=== PATIENT | male | born 1960 | race Caucasian/White ===

== ENCOUNTER 2017-09-29 21:53 | Emergency (ER) | payer MEDICARE, MEDICAID ==
[~2017-09-29] VITALS: Ht 177.8 cm; Wt 99.6 kg
[~2017-09-29 21:53] MED LIST: ACET-2902 PO; BISA10SU61 RC; CLON0.1T PO; CLON1 PO; ERGO400C PO; EZET10 PO; FE PR; IBUP-2076 PO; LOPE2CAP PO; LORA2TAB2 PO; MAGN250T9 PO; MULT1CAP42 PO; OMEP20CA10 PO; PSYL0.529 PO; QUET100T PO; SIME125C PO; SIMV20TA6 PO; TOPI200T PO; TRAM50TA4 PO; VICOT PO; [UNRECOGNIZED DRUG - CODE] PO
[2017-09-29] MEDS ORDERED: FENO48TA15 PO (22:15)
[2017-09-29] MEDS ORDERED: MELA3TAB66 PO (22:15)
[2017-09-29] MEDS ORDERED: ARIP2 PO (22:15)
[2017-09-29] MEDS ORDERED: OMEG10005 PO (22:15)
[2017-09-29] MEDS ORDERED: DSS100 PO (22:15)
[2017-09-29 22:20] LABS: BASOPHILS % (AUTO) 0.4 % (0.0-2.0); EOSINOPHILS % (AUTO) 1.3 % (1.0-6.0); HEMATOCRIT 39.5 % (41-53); LYMPHOCYTES # (AUTO) 1.7 K/uL (1.0-4.8); LYMPHOCYTES % (AUTO) 25.6 % (22.0-44.0); MEAN CORPUSCULAR HEMOGLOBIN 28.9 pg (26.0-34.0); MEAN CORPUSCULAR HGB CONC 35.4 G/dL (31.0-37.0); MEAN CORPUSCULAR VOLUME 82 fL (80-100); MONOCYTES # (AUTO) 0.4 K/uL (0.1-1.0); MONOCYTES % (AUTO) 6.6 % (2.0-9.0); NEUTROPHILS # (AUTO) 4.5 K/uL (1.8-7.7); NEUTROPHILS % (AUTO) 66.1 % (40.0-70.0); PLATELET COUNT (AUTO) 269 K/uL (150-450); RED BLOOD CELL COUNT(AUTO) 4.84 MIL/uL (4.50-5.90); RED CELL DISTRIBUTION WIDTH 13.1 % (11.5-14.5)
[2017-09-29 22:35] LABS: CALCIUM, TOTAL 8.7 mg/dL (8.8-10.5); CREATININE 1.71 mg/dL (0.60-1.30); POTASSIUM 3.2 mmol/L (3.5-5.1)
[2017-09-29 22:40] LABS: BILIRUBIN,TOTAL 0.3 mg/dL (0.1-1.0); TOTAL PROTEIN, SERUM 7.6 g/dL (6.4-8.2)
[2017-09-29 22:45] LABS: ALBUMIN 3.9 g/dL (3.4-5.0)
[2017-09-29 23:45] VITALS: BP 146/81
== END 2017-09-30 01:13 | disposition home or self-care (01) ==
LOC: EMS 21:54
DX: N18.9 Chronic kidney disease, unspecified (principal); Z88.5 Allergy status to narcotic agent; Z88.8 Allergy status to other drugs, medicaments and biological substances
CPT/HCPCS: 99284

== ENCOUNTER 2020-03-29 01:22 | Emergency (ER) | payer MEDICARE, OTHER, MEDICAID ==
[~2020-03-29] VITALS: Ht 177.8 cm; Wt 77.3 kg
[~2020-03-29 01:22] MED LIST changes: -ACET-2902 PO; +ARIP2 PO; -BISA10SU61 RC; +CLON-595 PO; -CLON1 PO; +DSS100 PO; -ERGO400C PO; -EZET10 PO; -FE PR; +FENO48TA20 PO; -IBUP-2076 PO; -LOPE2CAP PO; -LORA2TAB2 PO; -MAGN250T9 PO; +MELA3TAB89 PO; -MULT1CAP42 PO; +OMEG10005 PO; -OMEP20CA10 PO; -PSYL0.529 PO; -SIME125C PO; +SIMV-43 PO; -SIMV20TA6 PO; -TRAM50TA4 PO; -VICOT PO; -[UNRECOGNIZED DRUG - CODE] PO
[2020-03-29 02:43] LABS: GLUCOSE,POINT OF CARE 58 MG/DL (70-110)
[2020-03-29 03:09] LABS: GLUCOSE,POINT OF CARE 79 MG/DL (70-110)
[2020-03-29 03:13] LABS: ANION GAP 10 mmol/L (8-16); BASOPHILS % (AUTO) 0.4 % (0.0-2.0); CALCIUM, TOTAL 8.6 mg/dL (8.8-10.5); CARBON DIOXIDE 22 mmol/L (22-29); CHLORIDE 110 mmol/L (98-107); CREATININE 1.21 mg/dL (0.60-1.30); GLOMERULAR FILTR. RATE CALC > 60 mL/min (>60); GLUCOSE,RANDOM 91 mg/dL (70-110); HEMATOCRIT 43.2 % (41-53); HEMOGLOBIN 14.6 g/dL (13.5-17.5); LYMPHOCYTES # (AUTO) 2.3 K/uL (1.0-4.8); MEAN CORPUSCULAR HGB CONC 33.9 G/dL (31.0-37.0); MEAN CORPUSCULAR VOLUME 86 fL (80-100); MONOCYTES # (AUTO) 0.4 K/uL (0.1-1.0); MONOCYTES % (AUTO) 6.1 % (2.0-9.0); NEUTROPHILS # (AUTO) 3.1 K/uL (1.8-7.7); NEUTROPHILS % (AUTO) 52.5 % (40.0-70.0); PLATELET COUNT (AUTO) 219 K/uL (150-450); POTASSIUM 3.4 mmol/L (3.5-5.1); RED BLOOD CELL COUNT(AUTO) 5.05 MIL/uL (4.50-5.90); RED CELL DISTRIBUTION WIDTH 13.2 % (11.5-14.5); SODIUM SERUM 142 mmol/L (136-145); UREA NITROGEN, BLOOD 16 mg/dL (7-18)
[2020-03-29 03:20] LABS: ALANINE AMINOTRANSFERASE 31 U/L (12-78); ALBUMIN 3.7 g/dL (3.4-5.0); ALKALINE PHOSPHATASE 80 U/L (46-116); ASPARTATE AMINOTRANSFERASE 16 U/L (15-37); BILIRUBIN,TOTAL 0.3 mg/dL (0.1-1.0); TOTAL PROTEIN, SERUM 7.2 g/dL (6.4-8.2)
[2020-03-29 04:02] VITALS: BP 129/67
[2020-03-29 04:13] LABS: GLUCOSE,POINT OF CARE 104 MG/DL (70-110)
== END 2020-03-29 05:10 | disposition home or self-care (01) ==
LOC: EMS 01:23
DX: F84.0 Autistic disorder (principal); E16.2 Hypoglycemia, unspecified; R53.83 Other fatigue; F41.9 Anxiety disorder, unspecified; Z88.8 Allergy status to other drugs, medicaments and biological substances; Z88.5 Allergy status to narcotic agent
CPT/HCPCS: 36415; 80053; 82962; 84484; 85025; 93005; 99284; G0480

== ENCOUNTER 2023-10-03 12:09 | Emergency (ER) | payer MEDICARE, OTHER ==
[~2023-10-03] VITALS: Ht 177.8 cm; Wt 81.8 kg
[~2023-10-03 12:09] MED LIST changes: -ARIP2 PO; +ARIP2TAB27 PO; +FENO48TA12 PO; -FENO48TA20 PO
[2023-10-03 13:02] VITALS: TEMP 98
[2023-10-03 13:04] LABS: COVID AG,FIA SOURCE NASAL SWAB
[2023-10-03 13:22] LABS: ANION GAP 10 mmol/L (8-16); CALCIUM, TOTAL 8.9 mg/dL (8.8-10.5); CARBON DIOXIDE 24 mmol/L (22-29); CHLORIDE 109 mmol/L (98-107); CREATININE 1.19 mg/dL (0.60-1.30); GLOMERULAR FILTR. RATE CALC > 60 mL/min (>60); GLUCOSE,RANDOM 116 mg/dL (70-110); POTASSIUM 3.2 mmol/L (3.5-5.1); SODIUM SERUM 143 mmol/L (136-145); UREA NITROGEN, BLOOD 25 mg/dL (7-18)
[2023-10-03 13:28] LABS: ALANINE AMINOTRANSFERASE 26 U/L (12-78); ALBUMIN 3.5 g/dL (3.4-5.0); ALKALINE PHOSPHATASE 92 U/L (46-116); ASPARTATE AMINOTRANSFERASE 17 U/L (15-37); BILIRUBIN,TOTAL 0.3 mg/dL (0.1-1.0); TOTAL PROTEIN, SERUM 7.5 g/dL (6.4-8.2)
[2023-10-03 13:32] LABS: ALCOHOL, BLOOD (SERUM) < 3 mg/dL (0-10)
[2023-10-03 13:37] LABS: SARS-COV2 (COVID) ANTIGEN,FIA Negative (Negative)
[2023-10-03 13:38] LABS: BASOPHILS % (AUTO) 0.5 % (0.0-2.0); HEMOGLOBIN 13.9 g/dL (13.5-17.5); LYMPHOCYTES # (AUTO) 1.1 K/uL (1.0-4.8); LYMPHOCYTES % (AUTO) 18.9 % (22.0-44.0); MEAN CORPUSCULAR HEMOGLOBIN 29.9 pg (26.0-34.0); MEAN CORPUSCULAR HGB CONC 33.9 G/dL (31.0-37.0); MEAN CORPUSCULAR VOLUME 88 fL (80-100); MONOCYTES # (AUTO) 0.5 K/uL (0.1-1.0); MONOCYTES % (AUTO) 7.6 % (2.0-9.0); NEUTROPHILS # (AUTO) 4.2 K/uL (1.8-7.7); PLATELET COUNT (AUTO) 184 K/uL (150-450); RED BLOOD CELL COUNT(AUTO) 4.65 MIL/uL (4.50-5.90); RED CELL DISTRIBUTION WIDTH 13.9 % (11.5-14.5); WHITE BLOOD COUNT (AUTO) 6.1 K/uL (4.5-11.0)
[2023-10-03 16:30] VITALS: BP 120/75; PULSE 70; RESP 16
== END 2023-10-03 16:53 | disposition home or self-care (01) ==
LOC: EMS 12:09
DX: S90.31XA Contusion of right foot, initial encounter (principal); F84.0 Autistic disorder; F29 Unspecified psychosis not due to a substance or known physiological condition; Z88.1 Allergy status to other antibiotic agents; Z88.5 Allergy status to narcotic agent; Z88.6 Allergy status to analgesic agent; Z88.8 Allergy status to other drugs, medicaments and biological substances; Z20.822 Contact with and (suspected) exposure to COVID-19; Z79.899 Other long term (current) drug therapy; X58.XXXA Exposure to other specified factors, initial encounter; Y93.89 Activity, other specified; Y92.89 Other specified places as the place of occurrence of the external cause; Y99.8 Other external cause status
CPT/HCPCS: 99285; 87426; 80053; 80178; 85025; 36415; 73610; 73630; G0480

== ENCOUNTER 2023-11-28 15:28 | Inpatient (IN) | payer MEDICARE, OTHER ==
[~2023-11-28] VITALS: Ht 177.8 cm; Wt 90.9 kg
[2023-11-28] MEDS ORDERED: ATOR40TA71 PO (17:18)
[2023-11-28] MEDS ORDERED: FLUV100T22 PO (17:18)
[2023-11-28] MEDS ORDERED: QUET150T20 PO (17:18)
[2023-11-28 17:24] LABS: BASOPHILS % (AUTO) 0.3 % (0.0-2.0); EOSINOPHILS % (AUTO) 2.1 % (1.0-6.0); HEMATOCRIT 45.7 % (41-53); HEMOGLOBIN 15.7 g/dL (13.5-17.5); LYMPHOCYTES # (AUTO) 1.2 K/uL (1.0-4.8); LYMPHOCYTES % (AUTO) 25.1 % (22.0-44.0); MEAN CORPUSCULAR HEMOGLOBIN 29.7 pg (26.0-34.0); MEAN CORPUSCULAR HGB CONC 34.4 G/dL (31.0-37.0); MEAN CORPUSCULAR VOLUME 86 fL (80-100); MONOCYTES # (AUTO) 0.3 K/uL (0.1-1.0); MONOCYTES % (AUTO) 7.4 % (2.0-9.0); NEUTROPHILS % (AUTO) 65.1 % (40.0-70.0); PLATELET COUNT (AUTO) 192 K/uL (150-450); RED CELL DISTRIBUTION WIDTH 13.6 % (11.5-14.5); WHITE BLOOD COUNT (AUTO) 4.7 K/uL (4.5-11.0)
[2023-11-28 17:29] LABS: ANION GAP 7 mmol/L (8-16); CALCIUM, TOTAL 8.7 mg/dL (8.8-10.5); CARBON DIOXIDE 25 mmol/L (22-29); CHLORIDE 107 mmol/L (98-107); CREATININE 1.14 mg/dL (0.60-1.30); GLOMERULAR FILTR. RATE CALC > 60 mL/min (>60); GLUCOSE,RANDOM 97 mg/dL (70-110); POTASSIUM 3.4 mmol/L (3.5-5.1); SODIUM SERUM 139 mmol/L (136-145); UREA NITROGEN, BLOOD 17 mg/dL (7-18)
[2023-11-28 17:32] LABS: ALCOHOL, BLOOD (SERUM) < 3 mg/dL (0-10)
[2023-11-28 17:35] LABS: ALANINE AMINOTRANSFERASE 63 U/L (12-78); ALBUMIN 3.7 g/dL (3.4-5.0); ALKALINE PHOSPHATASE 88 U/L (46-116); ASPARTATE AMINOTRANSFERASE 38 U/L (15-37); BILIRUBIN,TOTAL 0.4 mg/dL (0.1-1.0); TOTAL PROTEIN, SERUM 7.7 g/dL (6.4-8.2)
[2023-11-28 17:37] LABS: TROPONIN I-HIGH SENSITIVITY 7 ng/L (<76)
[2023-11-28 17:47] LABS: COVID AG,FIA SOURCE NASAL SWAB
[2023-11-28 18:09] LABS: SARS-COV2 (COVID) ANTIGEN,FIA Negative (Negative)
[2023-11-28] MEDS: SODIUM CHLORIDE 0.9% 1,000 ML IV ONE (19:51)
[2023-11-28 20:52] LABS: INFLUENZA TYPE A NEGATIVE FOR TYPE A (NEGATIVE); INFLUENZA TYPE B NEGATIVE FOR TYPE B (NEGATIVE)
[2023-11-28] MEDS ORDERED: ONDANSETRON HCL 4 MG/2 ML VIAL IVP PRN (22:00)
[2023-11-28] MEDS ORDERED: CloNIDine HCL 0.1 MG TABLET PO SCH (22:00)
[2023-11-28] MEDS ORDERED: ACETAMINOPHEN 325 MG TABLET PO PRN (22:00)
[2023-11-28] MEDS ORDERED: 0.9% SODIUM CHLORIDE 10 ML SYRINGE IVP PRN (22:00)
[2023-11-28] MEDS: CefTRIAXone 1 GM/DEXTROSE 50 ML IV SCH (22:19)
[2023-11-28] MEDS: LORazepam 2 MG/ML VIAL IVP ONE (22:19)
[2023-11-28] MEDS: SODIUM CHLORIDE 0.9% 2,750 ML IV ONE (22:21)
[2023-11-28] MEDS ORDERED: 0.9% SODIUM CHLORIDE 10 ML SYRINGE IVP ONE (22:24)
[2023-11-28] MEDS ORDERED: SODIUM CHLORIDE 0.9% 100 ML ONE (22:24)
[2023-11-28] MEDS ORDERED: IOHEXOL 350 MG/ML 100 ML VIAL ONE (22:24)
[2023-11-28 22:33] LABS: APPEARANCE,URINE HAZY (CLEAR); BILIRUBIN,URINE NEGATIVE (NEGATIVE); COLOR,URINE LIGHT YELLOW (YELLOW); GLUCOSE, URINE (UA) NEGATIVE (NEGATIVE); KETONES,URINE NEGATIVE (NEGATIVE); LEUKOCYTE ESTERASE ,URINE NEGATIVE (NEGATIVE); NITRATE,URINE NEGATIVE (NEGATIVE); OCCULT BLOOD,URINE NEGATIVE (NEGATIVE); PH,URINE 7.5 (5.0-8.0); PH,URINE DRUG SCREEN 7.5 (5.0-8.0); PROTEIN,URINE NEGATIVE (NEGATIVE); UROBILINOGEN,URINE <=1.0 mg/dL (<=1.0)
[2023-11-28 22:40] LABS: ALCOHOL, URINE DRUG SCREEN NEGATIVE (NEGATIVE); AMPHET/METH SCREEN,URINE NEGATIVE (NEGATIVE); BARBITURATE SCREEN, URINE NEGATIVE (NEGATIVE); BENZODIAZEPINES SCREEN,URINE NEGATIVE (NEGATIVE); CANNABINOID SCREEN,URINE NEGATIVE (NEGATIVE); COCAINE SCREEN,URINE NEGATIVE (NEGATIVE); METHADONE SCREEN, URINE NEGATIVE (NEGATIVE); OPIATE SCREEN,URINE NEGATIVE (NEGATIVE); PHENCYCLIDINE SCREEN,URINE NEGATIVE (NEGATIVE)
[2023-11-28] MEDS: SODIUM CHLORIDE 0.9% 1,700 ML IV ONE (22:46)
[2023-11-28 23:20] LABS: BASOPHILS % (AUTO) 0.6 % (0.0-2.0); EOSINOPHILS % (AUTO) 1.5 % (1.0-6.0); HEMATOCRIT 45.5 % (41-53); HEMOGLOBIN 15.3 g/dL (13.5-17.5); LYMPHOCYTES # (AUTO) 1.3 K/uL (1.0-4.8); LYMPHOCYTES % (AUTO) 25.5 % (22.0-44.0); MEAN CORPUSCULAR HEMOGLOBIN 29.3 pg (26.0-34.0); MEAN CORPUSCULAR HGB CONC 33.6 G/dL (31.0-37.0); MEAN CORPUSCULAR VOLUME 87 fL (80-100); MONOCYTES # (AUTO) 0.4 K/uL (0.1-1.0); MONOCYTES % (AUTO) 7.4 % (2.0-9.0); NEUTROPHILS # (AUTO) 3.3 K/uL (1.8-7.7); PLATELET COUNT (AUTO) 180 K/uL (150-450); RED BLOOD CELL COUNT(AUTO) 5.23 MIL/uL (4.50-5.90); RED CELL DISTRIBUTION WIDTH 13.8 % (11.5-14.5)
[2023-11-28 23:37] LABS: LACTIC ACID 0.9 mmol/L (0.4-2.0)
[2023-11-28 23:40] LABS: ANION GAP 8 mmol/L (8-16); CALCIUM, TOTAL 8.3 mg/dL (8.8-10.5); CARBON DIOXIDE 23 mmol/L (22-29); CHLORIDE 107 mmol/L (98-107); CREATININE 1.04 mg/dL (0.60-1.30); GLOMERULAR FILTR. RATE CALC > 60 mL/min (>60); GLUCOSE,RANDOM 88 mg/dL (70-110); POTASSIUM 3.3 mmol/L (3.5-5.1); SODIUM SERUM 138 mmol/L (136-145); UREA NITROGEN, BLOOD 16 mg/dL (7-18)
[2023-11-28 23:43] LABS: ALANINE AMINOTRANSFERASE 58 U/L (12-78); ALBUMIN 3.4 g/dL (3.4-5.0); ALKALINE PHOSPHATASE 88 U/L (46-116); ASPARTATE AMINOTRANSFERASE 34 U/L (15-37); BILIRUBIN,TOTAL 0.4 mg/dL (0.1-1.0); LACTATE DEHYDROGENASE 145 U/L (85-227); TOTAL PROTEIN, SERUM 7.1 g/dL (6.4-8.2)
[2023-11-29] MEDS: HEPARIN SODIUM,PORCINE 5,000 UNITS/ML VIAL SQ SCH
[2023-11-29 00:27] VITALS: BP 129/74; PULSE 63; RESP 18; TEMP 98.8
[2023-11-29] MEDS: POTASSIUM CHL 10 MEQ/WATER 50 ML IV PRN (01:26)
[2023-11-29 05:30] VITALS: BP 142/78; PULSE 61; RESP 18
[2023-11-29 08:19] VITALS: BP 137/79; PULSE 61; RESP 18; TEMP 98.9
[2023-11-29 08:20] VITALS: BP 137/79; PULSE 61; RESP 18; TEMP 98.9
[2023-11-29 08:40] LABS: BASOPHILS % (AUTO) 0.4 % (0.0-2.0); EOSINOPHILS % (AUTO) 1.8 % (1.0-6.0); LYMPHOCYTES % (AUTO) 16.9 % (22.0-44.0); MEAN CORPUSCULAR HEMOGLOBIN 29.7 pg (26.0-34.0); MEAN CORPUSCULAR HGB CONC 34.2 G/dL (31.0-37.0); MEAN CORPUSCULAR VOLUME 87 fL (80-100); MONOCYTES # (AUTO) 0.4 K/uL (0.1-1.0); MONOCYTES % (AUTO) 5.9 % (2.0-9.0); NEUTROPHILS # (AUTO) 4.6 K/uL (1.8-7.7); PLATELET COUNT (AUTO) 170 K/uL (150-450); RED BLOOD CELL COUNT(AUTO) 5.07 MIL/uL (4.50-5.90); RED CELL DISTRIBUTION WIDTH 13.7 % (11.5-14.5); WHITE BLOOD COUNT (AUTO) 6.2 K/uL (4.5-11.0)
[2023-11-29] MEDS: TOPIRAMATE 100 MG TABLET PO SCH (08:41)
[2023-11-29] MEDS: ARIPiprazole 2 MG TABLET PO SCH (08:41)
[2023-11-29] MEDS: FENOFIBRATE 54 MG TABLET PO SCH (08:41)
[2023-11-29] MEDS: DOCUSATE SODIUM 100 MG CAPSULE PO SCH (08:41)
[2023-11-29] MEDS: OMEGA-3/DHA/EPA/FISH OIL 1,000 MG CAPSULE PO SCH (08:41)
[2023-11-29] MEDS: FluvoxaMINE MALEATE 50 MG TABLET PO SCH (08:41)
[2023-11-29] MEDS: ATORVASTATIN CALCIUM 40 MG TABLET PO SCH (08:41)
[2023-11-29] MEDS: ClonazePAM 1 MG TABLET PO SCH (08:41)
[2023-11-29] MEDS ORDERED: QUEtiapine FUMARATE 300 MG TABLET PO SCH (09:00)
[2023-11-29] MEDS ORDERED: SIMVASTATIN 20 MG TABLET PO SCH (09:00)
[2023-11-29] MEDS: QUEtiapine FUMARATE 100 MG TABLET PO SCH (09:00)
[2023-11-29] MEDS ORDERED: TAMS0.4C94 PO (11:54)
[2023-11-29] MEDS ORDERED: MIRA50TA PO (11:54)
[2023-11-29] MEDS ORDERED: BRIM5DRO28 OU (11:54)
[2023-11-29] MEDS ORDERED: BIMA2.5D4 OU (11:54)
[2023-11-29] MEDS ORDERED: FENO54TA7 PO (11:54)
[2023-11-29] MEDS ORDERED: DOCU-385 PO (11:54)
[2023-11-29] MEDS: LORazepam 2 MG/ML VIAL IVP ONE ×2 (13:56→15:24)
[2023-11-29] MEDS ORDERED: GADOTERATE MEGLUMINE 10 MMOL/20 ML VIAL IVP ONE (15:35)
[2023-11-29 16:35] VITALS: BP 141/87; PULSE 79; RESP 18; TEMP 99.3
[2023-11-29 19:36] VITALS: BP 126/74; PULSE 63; RESP 18; TEMP 98.6
[2023-11-29] MEDS ORDERED: SODIUM CHLORIDE 0.9% 1,000 ML ONE (21:39)
[2023-11-30 04:45] VITALS: BP 128/67; PULSE 59; RESP 18; TEMP 98.2
[2023-11-30 08:00] VITALS: BP 139/74; PULSE 56; RESP 18; TEMP 98.3
[2023-11-30] MEDS: SODIUM CHLORIDE 0.9% 1,000 ML IV SCH (10:47)
[2023-11-30 13:01] LABS: BASOPHILS % (AUTO) 0.4 % (0.0-2.0); EOSINOPHILS % (AUTO) 4.5 % (1.0-6.0); HEMOGLOBIN 15.5 g/dL (13.5-17.5); LYMPHOCYTES # (AUTO) 1.3 K/uL (1.0-4.8); LYMPHOCYTES % (AUTO) 28.6 % (22.0-44.0); MEAN CORPUSCULAR HEMOGLOBIN 29.5 pg (26.0-34.0); MEAN CORPUSCULAR HGB CONC 33.6 G/dL (31.0-37.0); MEAN CORPUSCULAR VOLUME 88 fL (80-100); MONOCYTES # (AUTO) 0.3 K/uL (0.1-1.0); MONOCYTES % (AUTO) 5.9 % (2.0-9.0); NEUTROPHILS # (AUTO) 2.7 K/uL (1.8-7.7); NEUTROPHILS % (AUTO) 60.6 % (40.0-70.0); PLATELET COUNT (AUTO) 150 K/uL (150-450); RED BLOOD CELL COUNT(AUTO) 5.26 MIL/uL (4.50-5.90); RED CELL DISTRIBUTION WIDTH 14.1 % (11.5-14.5); WHITE BLOOD COUNT (AUTO) 4.5 K/uL (4.5-11.0)
[2023-11-30 13:10] LABS: ANION GAP 12 mmol/L (8-16); CALCIUM, TOTAL 8.6 mg/dL (8.8-10.5); CARBON DIOXIDE 22 mmol/L (22-29); CHLORIDE 108 mmol/L (98-107); CREATININE 1.02 mg/dL (0.60-1.30); GLOMERULAR FILTR. RATE CALC > 60 mL/min (>60); GLUCOSE,RANDOM 126 mg/dL (70-110); POTASSIUM 3.3 mmol/L (3.5-5.1); SODIUM SERUM 142 mmol/L (136-145); UREA NITROGEN, BLOOD 7 mg/dL (7-18)
[2023-11-30] MEDS: POTASSIUM CHLORIDE 20 MEQ ER TABLET PO PRN (14:08)
[2023-11-30 14:53] VITALS: BP 133/93; PULSE 79; RESP 18; TEMP 98.7
[2023-11-30 19:27] VITALS: BP 133/87; PULSE 64; RESP 18; TEMP 98.1
[2023-11-30] MEDS: BRIMONIDINE/TIMOLOL 0.2-0.5% 5 ML OPHTHALMIC SOLUTION OU SCH (20:31)
[2023-12-01 06:39] VITALS: BP 126/69; PULSE 59; RESP 18; TEMP 97.9
[2023-12-01] MEDS: BIMATOPROST 0.01% 2.5 ML OPHTHALMIC SOLUTION OU SCH (08:45)
[2023-12-01 09:10] VITALS: BP 147/82; PULSE 80; RESP 20; TEMP 97.9
[2023-12-01 16:27] VITALS: BP 112/70; PULSE 64; RESP 19; TEMP 97.9
[2023-12-01] MEDS: ACETAMINOPHEN 500 MG TABLET PO SCH (16:57)
[2023-12-01 19:15] VITALS: BP 135/77; PULSE 64; RESP 18; TEMP 98.1
[2023-12-02 06:39] VITALS: BP 128/73; PULSE 60; RESP 18; TEMP 97.9
[2023-12-02 08:01] VITALS: BP 105/91; PULSE 60; RESP 18; TEMP 98.4
[2023-12-02 08:53] LABS: ANION GAP 10 mmol/L (8-16); CALCIUM, TOTAL 8.5 mg/dL (8.8-10.5); CARBON DIOXIDE 24 mmol/L (22-29); CHLORIDE 108 mmol/L (98-107); CREATININE 0.96 mg/dL (0.60-1.30); GLOMERULAR FILTR. RATE CALC > 60 mL/min (>60); GLUCOSE,RANDOM 93 mg/dL (70-110); POTASSIUM 3.5 mmol/L (3.5-5.1); SODIUM SERUM 142 mmol/L (136-145); UREA NITROGEN, BLOOD 11 mg/dL (7-18)
[2023-12-02 09:07] LABS: ALANINE AMINOTRANSFERASE 30 U/L (12-78); ALKALINE PHOSPHATASE 87 U/L (46-116); ASPARTATE AMINOTRANSFERASE 18 U/L (15-37); BILIRUBIN,TOTAL 0.3 mg/dL (0.1-1.0); THYROID STIMULATING HORMONE 2.41 uIU/mL (0.36-3.74); TOTAL PROTEIN, SERUM 6.8 g/dL (6.4-8.2)
[2023-12-02] MEDS: LACTULOSE 20 GM/30 ML SOLUTION UDCUP PO SCH (15:07)
[2023-12-02] MEDS: PEG 400/HYPROMELLOSE/GLYCERIN 15 ML OPHTHALMIC SOLUTION OU SCH (15:07)
[2023-12-02 15:50] VITALS: BP 144/67; PULSE 60; RESP 18; TEMP 96.4
[2023-12-02] MEDS ORDERED: SODIUM CHLORIDE 0.9% 500 ML IV ONE (16:15)
[2023-12-02 19:50] VITALS: BP 130/80; PULSE 62; RESP 18; TEMP 97.5
[2023-12-02] MEDS: TAMSULOSIN HCL 0.4 MG CAPSULE PO SCH (20:03)
[2023-12-02] MEDS: TOPIRAMATE 100 MG TABLET PO SCH (20:03)
[2023-12-03 06:18] VITALS: BP 116/77; PULSE 53; RESP 18; TEMP 97.5
[2023-12-03] MEDS: CALCIUM CARBONATE 500 MG CHEWABLE TABLET CHEW SCH (08:42)
[2023-12-03 09:35] VITALS: BP 160/86; PULSE 57; RESP 18; TEMP 97.6
[2023-12-03 16:44] VITALS: BP 149/78; PULSE 71; RESP 18; TEMP 98
[2023-12-03 19:45] VITALS: BP 135/89; PULSE 64; RESP 20; TEMP 98.5
[2023-12-03] MEDS: NAPROXEN 250 MG TABLET PO SCH (20:30)
[2023-12-04 05:43] VITALS: BP 115/89; PULSE 74; RESP 18; TEMP 97.8
[2023-12-04 09:20] VITALS: BP 120/76; PULSE 98; RESP 18; TEMP 98.5
[2023-12-04] MEDS: NAPROXEN 250 MG TABLET PO SCH (10:22)
== END 2023-12-04 16:15 | disposition home health service (06) | DRG 92 ==
LOC: EMS 15:28 → EDH 21:56 → 4E 11-29 00:05
PROVIDERS: ADMIT Internal Medicine; ATTEND Internal Medicine
DX: G92.8 Other toxic encephalopathy (principal); F84.0 Autistic disorder; M48.54XA Collapsed vertebra, not elsewhere classified, thoracic region, initial encounter for fracture; G40.909 Epilepsy, unspecified, not intractable, without status epilepticus; F42.9 Obsessive-compulsive disorder, unspecified; Z20.822 Contact with and (suspected) exposure to COVID-19; R62.7 Adult failure to thrive; F39 Unspecified mood [affective] disorder; E78.5 Hyperlipidemia, unspecified; F41.9 Anxiety disorder, unspecified; N31.8 Other neuromuscular dysfunction of bladder; Z87.11 Personal history of peptic ulcer disease; T50.915A Adverse effect of multiple unspecified drugs, medicaments and biological substances, initial encounter; Z74.01 Bed confinement status; N31.9 Neuromuscular dysfunction of bladder, unspecified; Z79.899 Other long term (current) drug therapy; Z88.8 Allergy status to other drugs, medicaments and biological substances; Z98.41 Cataract extraction status, right eye; Z88.5 Allergy status to narcotic agent; Z98.42 Cataract extraction status, left eye; Z87.01 Personal history of pneumonia (recurrent); Z86.61 Personal history of infections of the central nervous system; Z68.28 Body mass index [BMI] 28.0-28.9, adult
CPT/HCPCS: 70450; 70551; 71045; 72148; 74177; 80048; 80053; 80307; 81003; 82140; 83605; 83615; 83735; 84132; 84145; 84443; 84484; 85025; 85730; 86592; 87040; 87804; 93005; 95816; 97167; 97535; 99285; G0378; G0480; J0696; J1644; J2060; J3480; J7030; J7040; J7050; 36415-L1; 36415-TC

== ENCOUNTER 2024-05-07 07:30 | Inpatient (IN) | payer MEDICARE, MEDICAID, OTHER ==
[~2024-05-07] VITALS: Ht 185.4 cm; Wt 85.1 kg
[~2024-05-07 07:30] MED LIST changes: +ATOR40TA71 PO; +BIMA2.5D4 OU; +BRIM5DRO28 OU; -CLON0.1T PO; +DOCU-385 PO; -DSS100 PO; -FENO48TA12 PO; +FENO54TA7 PO; +MIRA50TA PO; +OMEG100014 PO; -OMEG10005 PO; -QUET100T PO; -SIMV-43 PO; +TAMS0.4C94 PO; +[UNRECOGNIZED DRUG - CODE] PO
[2024-05-07 08:48] LABS: COVID AG,FIA SOURCE NPH
[2024-05-07 08:51] LABS: PLATELET COUNT (AUTO) 202 K/uL (150-450); RED BLOOD CELL COUNT(AUTO) 5.46 MIL/uL (4.50-5.90); RED CELL DISTRIBUTION WIDTH 13.6 % (11.5-14.5); WHITE BLOOD COUNT (AUTO) 5.8 K/uL (4.5-11.0)
[2024-05-07] MEDS ORDERED: ZOLPIDEM TARTRATE 10 MG TABLET PO PRN (09:00)
[2024-05-07] MEDS ORDERED: OLANZapine 5 MG RAPDIS TABLET PO PRN (09:00)
[2024-05-07 09:07] LABS: CALCIUM, TOTAL 9.3 mg/dL (8.8-10.5); CREATININE 1.23 mg/dL (0.60-1.30); GLOMERULAR FILTR. RATE CALC 60 mL/min (>60); GLUCOSE,RANDOM 94 mg/dL (70-110); SODIUM SERUM 139 mmol/L (136-145); UREA NITROGEN, BLOOD 6 mg/dL (7-18)
[2024-05-07 09:54] LABS: SARS-COV2 (COVID) ANTIGEN,FIA Negative (Negative)
[2024-05-07 10:05] LABS: ALCOHOL, BLOOD (SERUM) < 3 mg/dL (0-10)
[2024-05-07] MEDS ORDERED: ACETAMINOPHEN 325 MG TABLET PO PRN (11:30)
[2024-05-07] MEDS ORDERED: MAG HYDROX/ALUMINUM HYD/SIMETH ES 30 ML SUSPENSION UDCUP PO PRN (11:30)
[2024-05-07] MEDS ORDERED: MAGNESIUM HYDROXIDE SUSPENSION 30 ML UDCUP PO PRN (11:30)
[2024-05-07] MEDS ORDERED: LOPERAMIDE HCL 2 MG CAPSULE PO PRN (11:30)
[2024-05-07] MEDS: POTASSIUM CHLORIDE 20 MEQ ER TABLET PO ONE (12:21)
[2024-05-07 15:15] VITALS: O2SAT 96
[2024-05-07 19:49] VITALS: BP 126/82; PULSE 67; RESP 16; TEMP 97.5; O2SAT 67
[2024-05-08] MEDS ORDERED: PETROLATUM,WHITE 28 GM JELLY TP PRN (15:30)
[2024-05-08] MEDS ORDERED: MAGNESIUM HYDROXIDE SUSPENSION 30 ML UDCUP PO PRN (15:30)
[2024-05-08] MEDS ORDERED: DOCUSATE SODIUM 100 MG CAPSULE PO PRN (15:30)
[2024-05-08] MEDS ORDERED: ONDANSETRON 4 MG TABLET PO PRN (15:30)
[2024-05-08] MEDS ORDERED: MAG HYDROX/ALUMINUM HYD/SIMETH ES 30 ML SUSPENSION UDCUP PO PRN (15:30)
[2024-05-08] MEDS ORDERED: ALBUTEROL SULFATE HFA 90 MCG/PUFF 8 GM INHALER IH PRN (15:30)
[2024-05-08] MEDS ORDERED: GuaiFENesin/D-METHORPHAN [SUGAR-FREE] 200-20MG/10 ML SYRUP UDCUP PO PRN (15:30)
[2024-05-08] MEDS ORDERED: NICOTINE 14 MG/24 HOUR PATCH TD PRN (15:30)
[2024-05-08] MEDS ORDERED: ACETAMINOPHEN 325 MG TABLET PO PRN (15:30)
[2024-05-08 17:01] VITALS: BP 110/62; PULSE 73; RESP 18; TEMP 97.8; O2SAT 97
[2024-05-08] MEDS ORDERED: FLUV50 PO (20:16)
[2024-05-08] MEDS ORDERED: LACT10SO10 PO (20:16)
[2024-05-08] MEDS ORDERED: CLON0.5T4 PO (20:16)
[2024-05-08] MEDS ORDERED: QUET100T34 PO (20:16)
[2024-05-08 20:23] VITALS: BP 170/71; PULSE 75; RESP 18; TEMP 96.9; O2SAT 94
[2024-05-09] MEDS: FENOFIBRATE 54 MG TABLET PO SCH (08:50)
[2024-05-09] MEDS: ATORVASTATIN CALCIUM 40 MG TABLET PO SCH (08:50)
[2024-05-09] MEDS: OMEGA-3/DHA/EPA/FISH OIL 1,000 MG CAPSULE PO SCH (08:50)
[2024-05-09] MEDS: TAMSULOSIN HCL 0.4 MG CAPSULE PO SCH (08:51)
[2024-05-09 08:58] LABS: CHOL/HDL RATIO 2.3 (4.2-7.3); LDL CHOL (CALC.) 66.0 mg/dL (0-130)
[2024-05-09 13:50] VITALS: BP 131/69; PULSE 93; RESP 18; TEMP 97.8; O2SAT 97
[2024-05-09 20:00] VITALS: BP 128/73; PULSE 79; RESP 18; TEMP 97.9; O2SAT 97
[2024-05-10 11:00] VITALS: RESP 16
[2024-05-10] MEDS: ZOLPIDEM TARTRATE 10 MG TABLET PO PRN (22:37)
[2024-05-11] MEDS: MELATONIN 3 MG TABLET PO PRN (01:36)
[2024-05-11 10:16] VITALS: BP 125/67; PULSE 62; RESP 17; TEMP 97.7; O2SAT 95
[2024-05-11] MEDS ORDERED: LORazepam 2 MG/ML VIAL ONE (12:37)
[2024-05-11] MEDS: LORazepam 2 MG/ML VIAL IM ONE (13:05)
[2024-05-11] MEDS: TOPIRAMATE 100 MG TABLET PO SCH (16:32)
[2024-05-11] MEDS: LACTULOSE 20 GM/30 ML SOLUTION UDCUP PO SCH (16:33)
[2024-05-11] MEDS: BRIMONIDINE/TIMOLOL 0.2-0.5% 5 ML OPHTHALMIC SOLUTION OU SCH (17:00)
[2024-05-11 20:32] VITALS: BP 127/68; PULSE 99; RESP 16; TEMP 98.5; O2SAT 100
[2024-05-11] MEDS: BIMATOPROST 0.01% 2.5 ML OPHTHALMIC SOLUTION OU SCH (21:13)
[2024-05-12 08:22] VITALS: BP 101/41; PULSE 60; RESP 16; TEMP 97; O2SAT 95
[2024-05-12 09:37] VITALS: BP 112/65
[2024-05-12 20:55] VITALS: BP 138/80; PULSE 71; RESP 18; TEMP 98.3; O2SAT 97
[2024-05-13 20:39] VITALS: BP 118/62; PULSE 62; RESP 18; TEMP 97.3; O2SAT 95
[2024-05-14 08:08] VITALS: BP 122/73; PULSE 60; RESP 16; TEMP 97.8; O2SAT 95
[2024-05-14 21:03] VITALS: BP 103/63; PULSE 73; RESP 18; TEMP 97.4; O2SAT 92
[2024-05-15 08:20] VITALS: PULSE 73; RESP 19; TEMP 97.6; O2SAT 96
[2024-05-15 20:41] VITALS: RESP 18; TEMP 97.8
[2024-05-15] MEDS: HYDROCORTISONE 2.5% 30 GM CREAM TP SCH (21:00)
[2024-05-16 08:31] VITALS: PULSE 84; RESP 17; TEMP 97.1; O2SAT 97
[2024-05-16] MEDS: LORazepam 2 MG/ML VIAL IM ONE (16:06)
[2024-05-17 08:41] VITALS: BP 104/62; PULSE 64; RESP 18; TEMP 97.4; O2SAT 96
[2024-05-17] MEDS: LORazepam 2 MG/ML VIAL IM ONE (17:34)
[2024-05-17 20:14] VITALS: PULSE 71; RESP 18; TEMP 97.6; O2SAT 98
[2024-05-18 08:14] VITALS: BP 106/58; PULSE 63; RESP 19; TEMP 96.4; O2SAT 97
[2024-05-18 20:25] VITALS: RESP 18; TEMP 97.6
[2024-05-19 08:00] LABS: PLATELET COUNT (AUTO) 186 K/uL (150-450); RED BLOOD CELL COUNT(AUTO) 4.63 MIL/uL (4.50-5.90); RED CELL DISTRIBUTION WIDTH 12.8 % (11.5-14.5); WHITE BLOOD COUNT (AUTO) 4.9 K/uL (4.5-11.0)
[2024-05-19 08:15] LABS: CALCIUM, TOTAL 8.4 mg/dL (8.8-10.5); CREATININE 1.01 mg/dL (0.60-1.30); GLOMERULAR FILTR. RATE CALC > 60 mL/min (>60); GLUCOSE,RANDOM 81 mg/dL (70-110); SODIUM SERUM 140 mmol/L (136-145); UREA NITROGEN, BLOOD 16 mg/dL (7-18)
[2024-05-19 08:25] VITALS: BP 120/65; PULSE 71; RESP 18; TEMP 97.9; O2SAT 96
[2024-05-19] MEDS: POTASSIUM CHLORIDE 20 MEQ ER TABLET PO ONE (09:53)
[2024-05-19 20:46] VITALS: BP 130/75; PULSE 86; RESP 17; TEMP 97.7; O2SAT 99
[2024-05-20 08:19] VITALS: BP 100/83; PULSE 64; RESP 17; TEMP 97.6; O2SAT 95
[2024-05-20 09:21] LABS: ASPARTATE AMINOTRANSFERASE 27 U/L (15-37); CALCIUM, TOTAL 8.6 mg/dL (8.8-10.5); CREATININE 0.99 mg/dL (0.60-1.30); GLOMERULAR FILTR. RATE CALC > 60 mL/min (>60); GLUCOSE,RANDOM 89 mg/dL (70-110); SODIUM SERUM 147 mmol/L (136-145); TOTAL PROTEIN, SERUM 6.0 g/dL (6.4-8.2); UREA NITROGEN, BLOOD 16 mg/dL (7-18)
[2024-05-20 09:50] LABS: APPEARANCE,URINE CLEAR (CLEAR); GLUCOSE, URINE (UA) NEGATIVE (NEGATIVE); LEUKOCYTE ESTERASE ,URINE NEGATIVE (NEGATIVE); NITRATE,URINE NEGATIVE (NEGATIVE); OCCULT BLOOD,URINE LARGE (NEGATIVE); PH,URINE DRUG SCREEN 6.0 (5.0-8.0); SPECIFIC GRAVITIY, URINE 1.013 (1.003-1.030)
[2024-05-20 09:57] LABS: ALCOHOL, URINE DRUG SCREEN NEGATIVE (NEGATIVE); AMPHET/METH SCREEN,URINE NEGATIVE (NEGATIVE); BARBITURATE SCREEN, URINE NEGATIVE (NEGATIVE); CANNABINOID SCREEN,URINE NEGATIVE (NEGATIVE); COCAINE SCREEN,URINE NEGATIVE (NEGATIVE); METHADONE SCREEN, URINE NEGATIVE (NEGATIVE)
[2024-05-20 11:13] LABS: CALCIUM OXALATE CRYSTALS,UR Few /LPF (None Seen); SQUAMOUS EPITHELIAL CELL,UR Few /LPF (None Seen)
[2024-05-20 20:17] VITALS: BP 119/84; PULSE 84; RESP 19; TEMP 97.6; O2SAT 96
[2024-05-21 17:03] VITALS: RESP 18
[2024-05-21 20:21] VITALS: RESP 18
[2024-05-22 08:39] VITALS: BP 118/69; PULSE 98; RESP 18; TEMP 98; O2SAT 98
[2024-05-22] MEDS: POTASSIUM CHLORIDE 20 MEQ ER TABLET PO ONE (13:24)
[2024-05-22 21:22] VITALS: BP 138/99; PULSE 71; RESP 17; TEMP 97.2; O2SAT 97
[2024-05-23 08:05] VITALS: RESP 16
[2024-05-23 09:09] LABS: CALCIUM, TOTAL 8.8 mg/dL (8.8-10.5); CREATININE 1.01 mg/dL (0.60-1.30); GLOMERULAR FILTR. RATE CALC > 60 mL/min (>60); GLUCOSE,RANDOM 86 mg/dL (70-110); SODIUM SERUM 149 mmol/L (136-145); UREA NITROGEN, BLOOD 8 mg/dL (7-18)
[2024-05-23 20:00] VITALS: BP 138/86; PULSE 61; RESP 18; TEMP 98.1; O2SAT 97
[2024-05-23] MEDS: POTASSIUM CHLORIDE 10 MEQ ER TABLET PO ONE (20:02)
[2024-05-24 08:06] VITALS: BP 133/61; PULSE 69; RESP 16; TEMP 97.6; O2SAT 96
[2024-05-24 09:04] LABS: CALCIUM, TOTAL 8.6 mg/dL (8.8-10.5); CREATININE 0.98 mg/dL (0.60-1.30); GLOMERULAR FILTR. RATE CALC > 60 mL/min (>60); GLUCOSE,RANDOM 85 mg/dL (70-110); SODIUM SERUM 144 mmol/L (136-145); UREA NITROGEN, BLOOD 11 mg/dL (7-18)
[2024-05-24 20:33] VITALS: BP 141/70; PULSE 95; RESP 18; TEMP 98; O2SAT 98
[2024-05-25 08:18] VITALS: PULSE 89; RESP 17; TEMP 92.2; O2SAT 98
[2024-05-25 08:56] LABS: CALCIUM, TOTAL 8.2 mg/dL (8.8-10.5); CREATININE 0.93 mg/dL (0.60-1.30); GLOMERULAR FILTR. RATE CALC > 60 mL/min (>60); GLUCOSE,RANDOM 86 mg/dL (70-110); SODIUM SERUM 143 mmol/L (136-145); UREA NITROGEN, BLOOD 11 mg/dL (7-18)
[2024-05-25] MEDS: POTASSIUM CHLORIDE 10% 40 MEQ/30 ML LIQUID UDCUP PO ONE (19:40)
[2024-05-25 22:12] VITALS: PULSE 90; RESP 18; TEMP 97.3; O2SAT 99
[2024-05-26 08:38] VITALS: PULSE 78; RESP 18; TEMP 97; O2SAT 98
[2024-05-26 08:55] LABS: CALCIUM, TOTAL 9.3 mg/dL (8.8-10.5); CREATININE 1.02 mg/dL (0.60-1.30); GLOMERULAR FILTR. RATE CALC > 60 mL/min (>60); GLUCOSE,RANDOM 71 mg/dL (70-110); SODIUM SERUM 142 mmol/L (136-145); UREA NITROGEN, BLOOD 12 mg/dL (7-18)
[2024-05-26 20:13] VITALS: PULSE 101; RESP 19; TEMP 97.4; O2SAT 98
[2024-05-27 08:33] VITALS: BP 137/63; PULSE 75; RESP 17; TEMP 98.2; O2SAT 96
[2024-05-27 20:18] VITALS: BP 145/65; PULSE 107; RESP 18; TEMP 97.6; O2SAT 98
[2024-05-28 08:36] VITALS: BP 135/83; PULSE 78; RESP 18; TEMP 98.1; O2SAT 96
[2024-05-28 20:18] VITALS: PULSE 97; RESP 18; TEMP 97.8; O2SAT 98
[2024-05-29 08:30] VITALS: BP 127/84; PULSE 101; RESP 18; TEMP 97.4; O2SAT 97
[2024-05-29 21:15] VITALS: BP 147/99; PULSE 87; RESP 18; TEMP 97.5; O2SAT 98
[2024-05-30 08:30] VITALS: RESP 17; O2SAT 97
[2024-05-30 08:39] LABS: ASPARTATE AMINOTRANSFERASE 30 U/L (15-37); CALCIUM, TOTAL 8.3 mg/dL (8.8-10.5); CREATININE 0.90 mg/dL (0.60-1.30); GLOMERULAR FILTR. RATE CALC > 60 mL/min (>60); GLUCOSE,RANDOM 101 mg/dL (70-110); SODIUM SERUM 145 mmol/L (136-145); TOTAL PROTEIN, SERUM 5.9 g/dL (6.4-8.2); UREA NITROGEN, BLOOD 10 mg/dL (7-18)
[2024-05-30 20:54] VITALS: BP 125/88; PULSE 91; RESP 18; TEMP 98.5; O2SAT 95
[2024-05-31 14:21] VITALS: RESP 18
[2024-05-31 22:52] VITALS: BP 140/80; PULSE 77; RESP 18; TEMP 98.3; O2SAT 99
[2024-06-01 16:54] VITALS: RESP 18
[2024-06-01 20:27] VITALS: BP 142/83; PULSE 85; RESP 18; TEMP 97.7; O2SAT 97
[2024-06-02 08:30] VITALS: BP 131/86; PULSE 83; RESP 19; TEMP 97.2; O2SAT 97
[2024-06-02 20:27] VITALS: PULSE 79; RESP 18; TEMP 97.3; O2SAT 96
[2024-06-03 08:30] VITALS: BP 131/81; PULSE 69; RESP 17; TEMP 97.6; O2SAT 96
[2024-06-03 20:13] VITALS: BP 119/83; PULSE 90; RESP 19; TEMP 97.8; O2SAT 97
[2024-06-04 08:29] VITALS: BP 141/86; PULSE 77; RESP 19; TEMP 97.4; O2SAT 95
[2024-06-04 10:17] LABS: APPEARANCE,URINE HAZY (CLEAR); GLUCOSE, URINE (UA) NEGATIVE (NEGATIVE); LEUKOCYTE ESTERASE ,URINE NEGATIVE (NEGATIVE); NITRATE,URINE NEGATIVE (NEGATIVE); OCCULT BLOOD,URINE SMALL (NEGATIVE); PH,URINE DRUG SCREEN 7.0 (5.0-8.0); SPECIFIC GRAVITIY, URINE 1.012 (1.003-1.030)
[2024-06-04 10:25] LABS: ALCOHOL, URINE DRUG SCREEN NEGATIVE (NEGATIVE); AMPHET/METH SCREEN,URINE NEGATIVE (NEGATIVE); BARBITURATE SCREEN, URINE NEGATIVE (NEGATIVE); CANNABINOID SCREEN,URINE NEGATIVE (NEGATIVE); COCAINE SCREEN,URINE NEGATIVE (NEGATIVE); METHADONE SCREEN, URINE NEGATIVE (NEGATIVE)
[2024-06-04 22:48] VITALS: RESP 18
[2024-06-05 09:05] VITALS: BP 119/68; PULSE 71; RESP 16; TEMP 98.4; O2SAT 98
[2024-06-05 20:44] VITALS: RESP 17
[2024-06-06 08:28] VITALS: RESP 16; TEMP 97.3
[2024-06-06] MEDS: BACITRACIN 28 GM OINTMENT TP SCH (19:00)
[2024-06-06 22:59] VITALS: PULSE 88; RESP 18; TEMP 98.6; O2SAT 96
[2024-06-07 08:00] VITALS: RESP 18
[2024-06-07 20:16] VITALS: RESP 18
[2024-06-08 13:19] VITALS: BP 146/95; PULSE 99; RESP 17; TEMP 97.9; O2SAT 95
[2024-06-08 20:16] VITALS: PULSE 86; RESP 18; TEMP 98; O2SAT 98
[2024-06-09 08:29] VITALS: BP 152/85; PULSE 79; RESP 18; TEMP 96.4; O2SAT 98
[2024-06-09 20:22] VITALS: PULSE 93; TEMP 97.9; O2SAT 98
[2024-06-10 10:16] VITALS: RESP 17
[2024-06-10 20:09] VITALS: TEMP 98.4
[2024-06-11 08:30] VITALS: BP 116/68; PULSE 85; RESP 17; TEMP 98.5; O2SAT 99
[2024-06-11 20:49] VITALS: BP 131/76; PULSE 93; RESP 18; TEMP 98.2; O2SAT 95
[2024-06-12 02:00] VITALS: BP 144/83
[2024-06-12 09:25] VITALS: BP 106/62; PULSE 84; RESP 16; TEMP 97.7; O2SAT 97
[2024-06-12 20:38] VITALS: BP 139/90; PULSE 97; RESP 17; TEMP 97.2; O2SAT 92
[2024-06-13 08:00] VITALS: BP 109/69; PULSE 71; RESP 18; TEMP 97; O2SAT 99
[2024-06-13 20:16] VITALS: PULSE 75; RESP 18; TEMP 98.2; O2SAT 100
[2024-06-13 23:15] VITALS: RESP 18
[2024-06-13] MEDS: IBUPROFEN 400 MG TABLET PO PRN (23:23)
[2024-06-14 00:23] VITALS: RESP 18
[2024-06-14 08:30] VITALS: PULSE 74; RESP 18; TEMP 97.9; O2SAT 97
[2024-06-14 21:19] VITALS: TEMP 97.3
[2024-06-15 00:50] VITALS: BP 130/98; PULSE 94; RESP 18; TEMP 96.6; O2SAT 98
[2024-06-15 09:33] LABS: CALCIUM, TOTAL 8.4 mg/dL (8.8-10.5); CREATININE 0.86 mg/dL (0.60-1.30); GLOMERULAR FILTR. RATE CALC > 60 mL/min (>60); GLUCOSE,RANDOM 91 mg/dL (70-110); SODIUM SERUM 143 mmol/L (136-145); UREA NITROGEN, BLOOD 12 mg/dL (7-18)
[2024-06-15 10:14] VITALS: BP 128/60; PULSE 65; RESP 18; TEMP 98; O2SAT 96
[2024-06-15] MEDS: POTASSIUM CHLORIDE 20 MEQ ER TABLET PO ONE (10:30)
[2024-06-15 21:17] VITALS: TEMP 97.8
[2024-06-16] MEDS: POTASSIUM CHLORIDE 20 MEQ ER TABLET PO ONE (10:21)
[2024-06-16 17:37] VITALS: RESP 17
[2024-06-16 23:15] VITALS: BP 123/58; PULSE 85; RESP 18; TEMP 98
[2024-06-17 08:31] VITALS: BP 107/60; PULSE 65; RESP 18; TEMP 98.1; O2SAT 98
[2024-06-17 21:03] VITALS: BP 96/65; PULSE 96; RESP 18; TEMP 97.6; O2SAT 96
[2024-06-17 21:25] VITALS: RESP 19
[2024-06-18 08:18] VITALS: PULSE 84; RESP 19; TEMP 97.4; O2SAT 99
[2024-06-18] MEDS: BACITRACIN 28 GM OINTMENT TP SCH (09:26)
[2024-06-18 20:12] VITALS: RESP 19
[2024-06-19 08:23] VITALS: BP 136/73; PULSE 69; RESP 18; TEMP 97.6; O2SAT 97
[2024-06-19 22:08] VITALS: RESP 16
[2024-06-20 08:15] VITALS: BP 101/61; PULSE 79; RESP 17; TEMP 97.6; O2SAT 98
[2024-06-20 20:00] VITALS: RESP 17
[2024-06-21 08:45] VITALS: BP 117/60; PULSE 66; RESP 18; TEMP 98.1; O2SAT 95
[2024-06-21 20:00] VITALS: PULSE 72; RESP 18; TEMP 98.4; O2SAT 97
[2024-06-22 08:27] VITALS: RESP 17; TEMP 97.3; O2SAT 96
[2024-06-23 10:07] VITALS: RESP 17
[2024-06-24 01:08] VITALS: BP 139/85; PULSE 109; RESP 18; TEMP 97.8; O2SAT 100
[2024-06-24 08:04] VITALS: BP 112/61; PULSE 68; RESP 17; TEMP 97.9; O2SAT 96
[2024-06-24 20:33] VITALS: TEMP 97
[2024-06-25 08:16] VITALS: BP 125/79; PULSE 106; RESP 18; TEMP 97.4; O2SAT 96
[2024-06-26 08:03] VITALS: BP 136/60; PULSE 67; RESP 17; TEMP 98.4; O2SAT 97
[2024-06-26 21:29] VITALS: BP 115/67; PULSE 74; RESP 20; TEMP 97.6; O2SAT 97
[2024-06-27 07:30] VITALS: BP 106/63; PULSE 65; RESP 18; TEMP 97.6; O2SAT 97
[2024-06-27 08:00] VITALS: BP 106/63; PULSE 65; RESP 18; TEMP 97.6; O2SAT 97
[2024-06-27 20:36] VITALS: BP 115/73; PULSE 71; RESP 18; TEMP 98.3; O2SAT 98
[2024-06-28 12:51] VITALS: BP 102/57; PULSE 62; RESP 17; TEMP 96.9; O2SAT 96
[2024-06-28 20:29] VITALS: BP 111/68; PULSE 75; RESP 18; TEMP 98.3; O2SAT 95
[2024-06-29 09:00] VITALS: BP 126/80; PULSE 79; RESP 18; TEMP 98.3; O2SAT 95
[2024-06-29 21:19] VITALS: BP 131/92; PULSE 76; RESP 18; TEMP 98.3; O2SAT 95
[2024-06-30 08:13] VITALS: BP 124/78; PULSE 65; RESP 18; TEMP 98; O2SAT 97
[2024-06-30] MEDS ORDERED: HYDROCORTISONE 2.5% 30 GM CREAM TP PRN (19:15)
[2024-06-30 20:03] VITALS: BP 139/101; PULSE 92; RESP 17; TEMP 97.5; O2SAT 96
[2024-07-01 08:00] VITALS: BP 119/70; PULSE 75; RESP 16; TEMP 97.1; O2SAT 100
[2024-07-01 20:00] VITALS: PULSE 74; RESP 18; TEMP 98.1; O2SAT 97
[2024-07-02 08:14] VITALS: PULSE 70; RESP 17; TEMP 97.2; O2SAT 98
[2024-07-02] MEDS: LOPERAMIDE HCL 2 MG CAPSULE PO PRN (20:11)
[2024-07-03 20:09] VITALS: BP 139/72; PULSE 98; RESP 17; TEMP 95.1; O2SAT 98
[2024-07-04 08:05] VITALS: BP 120/70; PULSE 66; RESP 18; TEMP 97.5; O2SAT 96
[2024-07-05 08:45] VITALS: BP 155/58; PULSE 79; RESP 18; TEMP 97.3; O2SAT 94
[2024-07-05 09:05] VITALS: BP 113/75; PULSE 77; RESP 16; O2SAT 95
[2024-07-06 08:35] VITALS: PULSE 71; RESP 18; TEMP 97.7; O2SAT 95
[2024-07-06 20:07] VITALS: BP 123/72; PULSE 72; RESP 18; TEMP 97.9; O2SAT 95
[2024-07-07 08:12] VITALS: BP 121/92; PULSE 77; RESP 18; TEMP 96.6; O2SAT 95
[2024-07-08 20:02] VITALS: RESP 18
[2024-07-09 08:00] VITALS: PULSE 74; RESP 16; TEMP 98.1; O2SAT 96
[2024-07-09] MEDS: LACTULOSE 20 GM/30 ML SOLUTION UDCUP PO SCH (14:29)
[2024-07-09 20:17] VITALS: RESP 18
[2024-07-10 08:14] VITALS: BP 111/64; PULSE 73; RESP 18; TEMP 98; O2SAT 95
[2024-07-10 20:22] VITALS: RESP 18
[2024-07-11 08:35] VITALS: PULSE 81; RESP 18; TEMP 98.4
[2024-07-11 20:09] VITALS: RESP 18; TEMP 98.1
[2024-07-12 08:33] VITALS: RESP 18; TEMP 98.6
[2024-07-12 21:00] VITALS: RESP 16; TEMP 98
[2024-07-13 09:06] VITALS: PULSE 82; RESP 16; TEMP 94.4
[2024-07-13] MEDS: BACITRACIN 28 GM OINTMENT TP SCH (16:45)
[2024-07-13 20:29] VITALS: RESP 17
[2024-07-14] MEDS: ERYTHROMYCIN 0.5% 3.5 GM TUBE OPHTHALMIC OINTMENT OU SCH (10:44)
[2024-07-14 11:55] VITALS: RESP 18
[2024-07-14 20:21] VITALS: RESP 18; TEMP 98.6
[2024-07-15 08:03] VITALS: BP 105/62; PULSE 63; RESP 15; TEMP 98; O2SAT 95
[2024-07-15 20:10] VITALS: PULSE 67; RESP 18; TEMP 98.1; O2SAT 96
[2024-07-16 08:01] VITALS: BP 103/59; PULSE 88; RESP 18; TEMP 97.5; O2SAT 100
[2024-07-17 09:30] VITALS: BP 108/75; PULSE 69; RESP 18; TEMP 98; O2SAT 95
[2024-07-17] MEDS: PNEUMOCOCCAL VACCINE POLYVALENT 0.5 ML SYRINGE [PPSV23] IM. ONE (11:16)
[2024-07-17] MEDS: INFLUENZA VIRUS VACCINE TVS (6MO+) 2024-25/PF 45 MCG/0.5 ML SYRINGE IM. ONE (16:36)
[2024-07-17 20:00] VITALS: RESP 16
[2024-07-18 08:25] VITALS: RESP 19
[2024-07-19 08:30] VITALS: BP 122/69; PULSE 64; RESP 18; TEMP 97.8; O2SAT 98
[2024-07-19 20:01] VITALS: BP 117/67; PULSE 63; RESP 18; TEMP 97.5; O2SAT 95
[2024-07-20 08:06] VITALS: BP 119/77; PULSE 92; RESP 15; TEMP 97.9; O2SAT 95
[2024-07-20 20:02] VITALS: RESP 17; TEMP 97.2
[2024-07-21 15:43] VITALS: RESP 16
[2024-07-22 08:21] VITALS: BP 140/92; PULSE 102; RESP 18; TEMP 96.8; O2SAT 100
[2024-07-22 20:00] VITALS: BP 123/57; PULSE 76; RESP 18; O2SAT 98
[2024-07-23 08:35] VITALS: BP 145/89; PULSE 100; RESP 18; TEMP 98.4; O2SAT 97
[2024-07-24 08:29] VITALS: BP 98/70; PULSE 60; RESP 17; TEMP 97.7; O2SAT 95
[2024-07-24 20:36] VITALS: RESP 18
[2024-07-25 08:32] VITALS: BP 141/87; PULSE 84; RESP 18; TEMP 97.7; O2SAT 96
[2024-07-25 22:19] VITALS: RESP 16; TEMP 98.2
[2024-07-26 08:22] VITALS: BP 100/60; PULSE 72; RESP 18; TEMP 97.9; O2SAT 98
[2024-07-26 20:12] VITALS: RESP 18
[2024-07-27 08:15] VITALS: BP 108/70; PULSE 76; RESP 18; TEMP 97.9; O2SAT 95
[2024-07-27 08:21] VITALS: BP 108/70; PULSE 76; RESP 18; TEMP 97.9; O2SAT 95
[2024-07-27 20:01] VITALS: RESP 18; O2SAT 95
[2024-07-28 08:57] VITALS: BP 146/86; PULSE 95; RESP 18; TEMP 97.7; O2SAT 96
[2024-07-28] MEDS: ERYTHROMYCIN 0.5% 3.5 GM TUBE OPHTHALMIC OINTMENT OU SCH (17:00)
[2024-07-29 08:11] VITALS: BP 123/74; PULSE 70; RESP 19; TEMP 98.2; O2SAT 97
[2024-07-29] MEDS: AMOX TR/POT CLAV 500 MG/125 MG TABLET PO SCH (10:01)
[2024-07-29 20:00] VITALS: BP 114/70; PULSE 85; RESP 16; TEMP 98.1; O2SAT 98
[2024-07-30 10:40] VITALS: RESP 18
[2024-07-30 20:05] VITALS: RESP 17; TEMP 98
[2024-07-31 08:02] VITALS: PULSE 68; RESP 18; TEMP 98.2; O2SAT 97
[2024-07-31 20:00] VITALS: BP 112/74; PULSE 64; RESP 17; TEMP 97.9; O2SAT 95
[2024-08-01 07:48] VITALS: BP 125/75; PULSE 74; RESP 17; TEMP 98.1; O2SAT 97
[2024-08-02 08:01] VITALS: BP 122/71; PULSE 70; RESP 16; TEMP 98.1; O2SAT 98
[2024-08-02 20:06] VITALS: PULSE 63; RESP 17; TEMP 97.7; O2SAT 95
[2024-08-03 08:01] VITALS: RESP 18; TEMP 98.1; O2SAT 97
[2024-08-03 20:54] VITALS: BP 120/76; PULSE 68; RESP 18; TEMP 98; O2SAT 98
[2024-08-04 08:03] VITALS: BP 128/73; PULSE 83; RESP 16; TEMP 98.1; O2SAT 96
[2024-08-05 21:39] VITALS: BP 113/64; PULSE 56; RESP 18; TEMP 98; O2SAT 98
[2024-08-06 08:01] VITALS: RESP 16
[2024-08-07 08:34] VITALS: BP 118/72; PULSE 63; RESP 17; TEMP 98.4; O2SAT 96
[2024-08-07 20:49] VITALS: BP 120/79; PULSE 63; RESP 18; TEMP 98.4; O2SAT 96
[2024-08-08 08:30] VITALS: BP 126/85; PULSE 70; RESP 18; TEMP 98.3; O2SAT 96
[2024-08-08 20:18] VITALS: RESP 16
[2024-08-09 08:01] VITALS: BP 116/62; PULSE 58; RESP 16; TEMP 97.7; O2SAT 99
[2024-08-09 20:04] VITALS: RESP 18; TEMP 98.2
[2024-08-10 08:47] VITALS: PULSE 86; RESP 16; TEMP 98.6; O2SAT 96
[2024-08-11 08:22] VITALS: BP 116/80; PULSE 60; RESP 17; TEMP 97.3; O2SAT 99
[2024-08-12 08:08] VITALS: RESP 17; TEMP 98.2
[2024-08-12 20:01] VITALS: BP 128/75; PULSE 67; RESP 18; TEMP 98.1; O2SAT 95
[2024-08-13] MEDS: MULTIVITAMINS WITH MINERALS, THERAPEUTIC TABLET PO SCH (07:52)
[2024-08-13 20:13] VITALS: TEMP 97.9
[2024-08-14 08:01] VITALS: RESP 16
[2024-08-15 09:28] VITALS: BP 105/55; PULSE 76; RESP 18; TEMP 97.5; O2SAT 98
[2024-08-15] MEDS: LACTULOSE 20 GM/30 ML SOLUTION UDCUP PO SCH (12:34)
[2024-08-15 20:04] VITALS: BP 113/64; PULSE 65; RESP 18; TEMP 98.1; O2SAT 96
[2024-08-16 09:47] VITALS: PULSE 67; RESP 16; TEMP 97.6; O2SAT 98
[2024-08-16 20:01] VITALS: RESP 16; TEMP 98.6
[2024-08-17 12:24] VITALS: BP 116/74; PULSE 64; RESP 18; TEMP 98.6; O2SAT 95
[2024-08-17 20:14] VITALS: BP 128/77; PULSE 59; RESP 16; TEMP 97.7; O2SAT 95
[2024-08-18 20:02] VITALS: PULSE 60; RESP 18; O2SAT 96
[2024-08-19 08:41] VITALS: BP 109/45; PULSE 50; RESP 18; TEMP 97.5; O2SAT 95
[2024-08-19 20:01] VITALS: BP 126/75; PULSE 58; RESP 16; TEMP 98.2; O2SAT 95
[2024-08-20 08:30] VITALS: RESP 16
[2024-08-20] MEDS: CIPROFLOXACIN HCL 500 MG TABLET PO SCH (09:32)
[2024-08-20] MEDS: ERYTHROMYCIN 0.5% 3.5 GM TUBE OPHTHALMIC OINTMENT OD SCH (09:34)
[2024-08-20 20:02] VITALS: RESP 16
[2024-08-21 08:41] VITALS: BP 120/73; PULSE 55; RESP 18; TEMP 98.1
[2024-08-21 23:12] VITALS: RESP 18
[2024-08-22 08:34] VITALS: PULSE 69; RESP 18; O2SAT 98
[2024-08-23 08:14] VITALS: BP 132/87; PULSE 60; RESP 18; TEMP 97.9; O2SAT 96
[2024-08-24 15:49] VITALS: RESP 18
[2024-08-24 20:30] VITALS: BP 114/69; PULSE 64; RESP 18; TEMP 98.2; O2SAT 96
[2024-08-25 09:30] VITALS: RESP 16
[2024-08-25 20:03] VITALS: BP 92/58; PULSE 64; RESP 16; TEMP 97.9; O2SAT 97
[2024-08-26 08:23] VITALS: BP 110/62; PULSE 61; RESP 18; TEMP 98.1; O2SAT 97
[2024-08-26 20:03] VITALS: BP 141/104; PULSE 65; RESP 18; TEMP 97.7; O2SAT 97
[2024-08-27 09:10] VITALS: BP 97/69; PULSE 78; RESP 18; TEMP 98.4; O2SAT 97
[2024-08-27 20:00] VITALS: BP 119/73; PULSE 94; RESP 18; TEMP 98.1; O2SAT 96
[2024-08-28 08:10] VITALS: BP 100/62; PULSE 68; RESP 17; TEMP 98.4; O2SAT 95
[2024-08-28 20:00] VITALS: BP 104/64; PULSE 57; RESP 16; TEMP 98.6; O2SAT 95
[2024-08-29 09:00] VITALS: BP 98/65; PULSE 76; RESP 16; TEMP 98.1; O2SAT 95
[2024-08-29 20:20] VITALS: BP 109/79; PULSE 85; RESP 18; TEMP 98.5; O2SAT 100
[2024-08-30 08:55] VITALS: BP 120/74; PULSE 60; RESP 16; TEMP 98.8; O2SAT 97
[2024-08-30 20:17] VITALS: RESP 17
[2024-08-31 13:50] VITALS: RESP 16
[2024-08-31 20:33] VITALS: RESP 17; TEMP 98.4
[2024-08-31 20:56] VITALS: BP 110/69; PULSE 110; RESP 18; TEMP 98.4; O2SAT 100
[2024-09-01 08:06] VITALS: BP 96/59; PULSE 74; RESP 18; TEMP 98.2; O2SAT 95
[2024-09-01 09:30] LABS: PLATELET COUNT (AUTO) 213 K/uL (150-450); RED BLOOD CELL COUNT(AUTO) 4.46 MIL/uL (4.50-5.90); RED CELL DISTRIBUTION WIDTH 13.9 % (11.5-14.5); WHITE BLOOD COUNT (AUTO) 4.4 K/uL (4.5-11.0)
[2024-09-01 09:44] LABS: CALCIUM, TOTAL 8.9 mg/dL (8.8-10.5); CREATININE 1.07 mg/dL (0.60-1.30); GLOMERULAR FILTR. RATE CALC > 60 mL/min (>60); GLUCOSE,RANDOM 85 mg/dL (70-110); SODIUM SERUM 142 mmol/L (136-145); UREA NITROGEN, BLOOD 11 mg/dL (7-18)
[2024-09-01] MEDS: POTASSIUM CHLORIDE 20 MEQ ER TABLET PO ONE (11:01)
[2024-09-01 20:05] VITALS: BP 106/72; PULSE 82; RESP 18; O2SAT 97
[2024-09-02] MEDS: POTASSIUM CHLORIDE 20 MEQ ER TABLET PO ONE (11:07)
[2024-09-02 17:30] VITALS: BP 126/71; PULSE 60; RESP 18; TEMP 97; O2SAT 95
[2024-09-02 20:10] VITALS: BP 124/71; PULSE 60; RESP 18; TEMP 95.5; O2SAT 95
[2024-09-03 08:10] VITALS: BP 103/61; PULSE 84; RESP 18; TEMP 98; O2SAT 96
[2024-09-03 20:54] VITALS: BP 155/99; PULSE 118; RESP 16; TEMP 97.6; O2SAT 98
[2024-09-04 09:30] VITALS: BP 101/61; PULSE 67; RESP 17; TEMP 97.2; O2SAT 97
[2024-09-04] MEDS: POTASSIUM CHLORIDE 20 MEQ ER TABLET PO ONE (11:03)
[2024-09-04 20:16] VITALS: BP 127/100; PULSE 59; RESP 16; TEMP 98; O2SAT 99
[2024-09-05 08:08] VITALS: BP 92/65; PULSE 63; RESP 18; TEMP 97.4; O2SAT 96
[2024-09-05 20:21] VITALS: BP 96/75; PULSE 58; RESP 16; TEMP 97.4; O2SAT 96
[2024-09-06 12:38] VITALS: RESP 18; O2SAT 97
[2024-09-07 08:20] VITALS: BP 96/66; PULSE 72; RESP 18; TEMP 98.1; O2SAT 100
[2024-09-07 20:37] VITALS: BP 111/84; PULSE 67; RESP 18; TEMP 98; O2SAT 95
[2024-09-08 14:02] VITALS: RESP 17
[2024-09-08 20:00] VITALS: BP 109/83; PULSE 64; RESP 16; O2SAT 95
[2024-09-09 08:09] VITALS: RESP 18; TEMP 97.9; O2SAT 95
[2024-09-09 20:14] VITALS: BP 128/82; PULSE 82; RESP 17; TEMP 97.3; O2SAT 96
[2024-09-10 09:26] VITALS: BP 110/70; PULSE 63; RESP 17; TEMP 98.2; O2SAT 97
[2024-09-10 21:40] VITALS: RESP 18
[2024-09-11 20:42] VITALS: BP 114/74; PULSE 60; RESP 16; TEMP 97.8; O2SAT 99
[2024-09-12 08:19] VITALS: PULSE 78; RESP 18; TEMP 98; O2SAT 99
[2024-09-12 20:02] VITALS: RESP 18
[2024-09-13 08:26] VITALS: BP 109/71; PULSE 74; RESP 17; TEMP 97.9
[2024-09-13 21:00] VITALS: RESP 18
[2024-09-14 08:00] VITALS: RESP 17
[2024-09-15 10:53] VITALS: BP 132/107; PULSE 78; RESP 17; TEMP 97.7; O2SAT 97
[2024-09-15 20:02] VITALS: BP 109/97; PULSE 65; RESP 18; TEMP 98.2; O2SAT 97
[2024-09-16 09:00] VITALS: BP 115/70; PULSE 73; RESP 18; TEMP 98; O2SAT 96
[2024-09-16 20:25] LABS: GLUCOMETER DEV NAME(LOC) BV2X.3; GLUCOSE,POINT OF CARE 132 MG/DL (70-110)
[2024-09-16 20:36] VITALS: RESP 18
[2024-09-17 08:32] VITALS: RESP 18
[2024-09-17 20:06] VITALS: RESP 18
[2024-09-18 08:02] VITALS: BP 113/85; PULSE 96; RESP 18; TEMP 97.9; O2SAT 99
[2024-09-18 20:05] VITALS: RESP 18
[2024-09-19 08:59] VITALS: BP 98/67; PULSE 88; RESP 18; TEMP 98; O2SAT 96
[2024-09-20 08:48] VITALS: BP 111/70; PULSE 82; RESP 19; TEMP 97.7; O2SAT 99
[2024-09-20 20:13] VITALS: RESP 18
[2024-09-21 20:30] VITALS: PULSE 77; RESP 18; TEMP 98; O2SAT 96
[2024-09-22 08:58] VITALS: RESP 18; TEMP 97.9; O2SAT 97
[2024-09-22 20:11] VITALS: PULSE 65; RESP 18; TEMP 97.8; O2SAT 96
[2024-09-23 09:16] VITALS: BP 107/66; PULSE 77; RESP 18; TEMP 97.3; O2SAT 97
[2024-09-23 20:05] VITALS: BP 98/73; PULSE 63; RESP 19; TEMP 98.1; O2SAT 98
[2024-09-24 08:19] VITALS: BP 108/70; PULSE 75; RESP 17; TEMP 97.6; O2SAT 96
[2024-09-24 09:32] LABS: PLATELET COUNT (AUTO) 188 K/uL (150-450); RED BLOOD CELL COUNT(AUTO) 4.49 MIL/uL (4.50-5.90); RED CELL DISTRIBUTION WIDTH 13.8 % (11.5-14.5); WHITE BLOOD COUNT (AUTO) 4.4 K/uL (4.5-11.0)
[2024-09-24 10:04] LABS: ASPARTATE AMINOTRANSFERASE 16 U/L (15-37); CALCIUM, TOTAL 8.2 mg/dL (8.8-10.5); CREATININE 0.94 mg/dL (0.60-1.30); GLOMERULAR FILTR. RATE CALC > 60 mL/min (>60); GLUCOSE,RANDOM 128 mg/dL (70-110); PHOSPHORUS 2.3 mg/dL (2.5-4.9); SODIUM SERUM 142 mmol/L (136-145); TOTAL PROTEIN, SERUM 6.0 g/dL (6.4-8.2); UREA NITROGEN, BLOOD 8 mg/dL (7-18)
[2024-09-24] MEDS: POTASSIUM CHLORIDE 20 MEQ ER TABLET PO ONE (20:55)
[2024-09-25 08:19] VITALS: RESP 18; TEMP 98.1
[2024-09-25] MEDS: POTASSIUM CHLORIDE 20 MEQ ER TABLET PO ONE (17:09)
[2024-09-25 20:55] VITALS: BP 114/81; PULSE 87; RESP 16; TEMP 97.5; O2SAT 96
[2024-09-26 18:53] VITALS: RESP 17
[2024-09-26 20:47] VITALS: BP 127/83; PULSE 74; RESP 16; TEMP 98.1; O2SAT 98
[2024-09-27 08:49] VITALS: BP 109/66; PULSE 77; RESP 17; TEMP 98.1; O2SAT 97
[2024-09-27 20:07] VITALS: RESP 16
[2024-09-28 09:09] VITALS: BP 94/62; PULSE 66; RESP 16; TEMP 98; O2SAT 98
[2024-09-28 20:29] VITALS: BP 68/51; PULSE 65; RESP 17; TEMP 97; O2SAT 96
[2024-09-29 07:09] VITALS: BP 122/76; PULSE 76; RESP 18; TEMP 97.4; O2SAT 98
[2024-09-29 18:30] VITALS: RESP 17
[2024-09-29 20:24] VITALS: RESP 18; TEMP 97.6; O2SAT 97
[2024-09-30 08:04] VITALS: BP 153/103; PULSE 97; RESP 18; TEMP 97.4; O2SAT 90
[2024-09-30 20:02] VITALS: RESP 18; TEMP 98.1
[2024-10-01 08:29] VITALS: BP 134/11; PULSE 72; RESP 17; TEMP 97.5
[2024-10-01 09:08] VITALS: RESP 17
[2024-10-01 10:08] VITALS: RESP 17
[2024-10-02 09:06] VITALS: PULSE 68; RESP 17; TEMP 98.1; O2SAT 98
[2024-10-02 20:49] VITALS: RESP 17; TEMP 97.9
[2024-10-03 08:33] VITALS: BP 136/77; PULSE 70; RESP 18; TEMP 97.7; O2SAT 95
[2024-10-03 20:01] VITALS: PULSE 64; RESP 18; TEMP 97.5; O2SAT 96
[2024-10-04 08:20] VITALS: RESP 17
[2024-10-04] MEDS ORDERED: BACITRACIN 28 GM OINTMENT TP PRN (10:30)
[2024-10-04 20:04] VITALS: PULSE 66; RESP 18; TEMP 97.4; O2SAT 96
[2024-10-05 14:43] VITALS: PULSE 63; RESP 18; TEMP 97.9; O2SAT 98
[2024-10-05 23:01] VITALS: RESP 18; O2SAT 98
[2024-10-06 15:47] VITALS: BP 115/83; PULSE 89; RESP 17; TEMP 97.5; O2SAT 97
[2024-10-06 20:21] VITALS: BP 116/73; PULSE 60; RESP 18; TEMP 97.2; O2SAT 97
[2024-10-07 08:13] VITALS: PULSE 73; RESP 18; TEMP 98.1; O2SAT 99
[2024-10-07 20:39] VITALS: PULSE 64; RESP 16; O2SAT 96
[2024-10-08] MEDS: BACITRACIN 28 GM OINTMENT TP SCH (08:12)
[2024-10-08 08:17] VITALS: BP 127/90; PULSE 60; RESP 18; TEMP 97.9; O2SAT 97
[2024-10-08 20:04] VITALS: BP 110/76; PULSE 64; RESP 18; TEMP 97.5; O2SAT 97
[2024-10-09 08:01] VITALS: BP 121/84; PULSE 69; RESP 18; TEMP 97.7; O2SAT 95
[2024-10-10 08:20] VITALS: BP 109/77; PULSE 108; RESP 18; TEMP 98.2; O2SAT 98
[2024-10-10 10:08] LABS: ASPARTATE AMINOTRANSFERASE 17.0 U/L (15-37); CALCIUM, TOTAL 9.1 mg/dL (8.8-10.5); CREATININE 1.23 mg/dL (0.60-1.30); GLOMERULAR FILTR. RATE CALC 60.0 mL/min (>60); GLUCOSE,RANDOM 109.0 mg/dL (70-110); SODIUM SERUM 143.0 mmol/L (136-145); TOTAL PROTEIN, SERUM 7.6 g/dL (6.4-8.2); UREA NITROGEN, BLOOD 12.0 mg/dL (7-18)
[2024-10-10] MEDS ORDERED: LACTULOSE 20 GM/30 ML SOLUTION UDCUP PO PRN (11:00)
[2024-10-10 20:02] VITALS: RESP 17
[2024-10-11 08:11] VITALS: BP 122/78; PULSE 76; RESP 18; TEMP 97.8; O2SAT 95
[2024-10-11 20:42] VITALS: RESP 18; TEMP 97.6
[2024-10-12 08:27] VITALS: BP 137/83; PULSE 61; RESP 18; TEMP 97.5; O2SAT 99
[2024-10-12 20:45] VITALS: BP 104/64; PULSE 65; RESP 18; TEMP 97.7; O2SAT 99
[2024-10-13 08:14] VITALS: BP 124/70; PULSE 66; RESP 18; TEMP 97.2; O2SAT 98
[2024-10-13] MEDS: TUBERCULIN, PURIFIED PROTEIN DERIVATIVE 5 TU/0.1 ML SYRINGE ID ONE (09:42)
[2024-10-13 20:11] VITALS: BP 134/75; PULSE 64; RESP 18; TEMP 96.4; O2SAT 96
[2024-10-14 08:03] VITALS: PULSE 72; RESP 18; TEMP 97.8; O2SAT 98
[2024-10-14 20:19] VITALS: RESP 18; TEMP 97.8
[2024-10-15 09:44] VITALS: BP 117/86; PULSE 61; RESP 17; O2SAT 98
[2024-10-15 20:01] VITALS: BP 103/88; PULSE 61; RESP 18; TEMP 97.8; O2SAT 96
[2024-10-16 08:22] VITALS: BP 119/76; PULSE 60; RESP 17; TEMP 98.7; O2SAT 97
[2024-10-18 08:15] VITALS: BP 116/60; PULSE 60; RESP 18; TEMP 98.6; O2SAT 98
[2024-10-18 20:06] VITALS: BP 133/81; PULSE 79; RESP 18; TEMP 97.7; O2SAT 99
[2024-10-19 20:01] VITALS: RESP 18; TEMP 98.2
[2024-10-20 13:44] VITALS: RESP 17
[2024-10-20 20:08] VITALS: BP 143/74; PULSE 61; RESP 17; TEMP 98.8
[2024-10-21 08:25] VITALS: BP 125/75; PULSE 59; RESP 18; TEMP 98.6; O2SAT 97
[2024-10-21 20:01] VITALS: BP 100/80; PULSE 58; RESP 18; TEMP 97.6; O2SAT 95
[2024-10-22 08:08] VITALS: BP 101/73; PULSE 60; RESP 17; TEMP 98.2; O2SAT 97
[2024-10-23 08:07] VITALS: BP 119/90; PULSE 69; RESP 18; TEMP 97.6; O2SAT 95
[2024-10-23 20:17] VITALS: RESP 17
[2024-10-24 08:07] VITALS: RESP 19; TEMP 97.6; O2SAT 97
[2024-10-24 09:41] VITALS: BP 121/66
[2024-10-24 20:10] VITALS: BP 130/94; PULSE 65; RESP 16; TEMP 99; O2SAT 95
[2024-10-25 08:04] VITALS: BP 112/79; PULSE 60; RESP 17; TEMP 98.5; O2SAT 95
[2024-10-25 20:13] VITALS: BP 111/67; PULSE 62; RESP 17; TEMP 97.5; O2SAT 98
[2024-10-26 08:01] VITALS: BP 115/78; PULSE 76; RESP 18; TEMP 97.8; O2SAT 97
[2024-10-26 20:12] VITALS: BP 90/80; PULSE 60; RESP 20; TEMP 97.5; O2SAT 97
[2024-10-27 08:18] VITALS: BP 119/76; PULSE 58; RESP 18; TEMP 97.8; O2SAT 98
[2024-10-27 20:19] VITALS: PULSE 62; RESP 18; TEMP 99.2; O2SAT 96
[2024-10-28 08:11] VITALS: BP 105/67; PULSE 64; RESP 17; TEMP 98; O2SAT 96
[2024-10-28] MEDS ORDERED: TOPI100 PO (09:11)
[2024-10-28] MEDS ORDERED: OMEG100033 PO (09:11)
[2024-10-28] MEDS ORDERED: ASEN10TA14 SL (09:11)
[2024-10-28] MEDS ORDERED: ATEN-73 PO (09:11)
[2024-10-28] MEDS ORDERED: TAMS0.4C94 PO (09:11)
[2024-10-28] MEDS ORDERED: CLON-595 PO (09:11)
[2024-10-28] MEDS ORDERED: LACT10SO10 PO (09:11)
[2024-10-28] MEDS ORDERED: CLON-592 PO (09:11)
[2024-10-28] MEDS ORDERED: BRIM5DRO28 OU (09:11)
[2024-10-28] MEDS ORDERED: ATOR40TA71 PO (09:11)
[2024-10-28] MEDS ORDERED: FENO54TA7 PO (09:11)
[2024-10-28] MEDS ORDERED: BIMA2.5D4 OU (09:11)
[2024-10-28] MEDS ORDERED: GUAN1TAB2 PO (09:11)
== END 2024-10-28 11:24 | disposition home or self-care (01) | DRG 885 ==
LOC: EMS 07:32 → B2X 15:56
PROVIDERS: ADMIT Psychiatry & Neurology Psychiatry; ATTEND Psychiatry & Neurology Psychiatry
PROC: GZHZZZZ Group Psychotherapy (ICD-10-PCS; principal; 2024-10-06)
PROC: GZ51ZZZ Individual Psychotherapy, Behavioral (ICD-10-PCS; 2024-10-06)
DX: F25.0 Schizoaffective disorder, bipolar type (principal); E87.0 Hyperosmolality and hypernatremia; G93.40 Encephalopathy, unspecified; E87.6 Hypokalemia; G40.909 Epilepsy, unspecified, not intractable, without status epilepticus; E78.5 Hyperlipidemia, unspecified; Z20.822 Contact with and (suspected) exposure to COVID-19; F84.0 Autistic disorder; F94.0 Selective mutism; N40.0 Benign prostatic hyperplasia without lower urinary tract symptoms; K21.9 Gastro-esophageal reflux disease without esophagitis; K59.00 Constipation, unspecified; I10 Essential (primary) hypertension; F41.9 Anxiety disorder, unspecified; G47.00 Insomnia, unspecified; Z86.61 Personal history of infections of the central nervous system; Z79.899 Other long term (current) drug therapy; Z88.5 Allergy status to narcotic agent; Z91.81 History of falling
CPT/HCPCS: 80048; 80053; 80061; 80307; 81001; 82140; 82962; 83036; 83735; 84100; 84132; 84443; 85025; 87081; 90686; 90732; 99285; G0480; J1200; J1630; J2060; J3230; Q0162